=== PATIENT | male | born 1960 | race Caucasian/White ===

== ENCOUNTER 2022-04-06 07:49 | Day surgery (SDC) | payer OTHER ==
[~2022-04-06] VITALS: Ht 177.8 cm; Wt 84.0 kg
[~2022-04-06 07:49] MED LIST: Flomax0.4 MG PO; KETO10 PO; PROM25 PO; PROM25S; Percocet 5-3251 EACH PO
[2022-04-20 08:01] LABS: Performing Lab CELLNETIX; Test Name BIOPSY
== END 2022-04-06 10:07 | disposition home or self-care (01) ==
LOC: ORSCSDS 07:49
PROVIDERS: Student in an Organized Health Care Education/Training Program
PROC: 0DBM8ZX Excision of Descending Colon, Via Natural or Artificial Opening Endoscopic, Diagnostic (ICD-10-PCS; principal; 2022-04-06 09:00)
PROC: 0DBK8ZX Excision of Ascending Colon, Via Natural or Artificial Opening Endoscopic, Diagnostic (ICD-10-PCS; principal; 2022-04-06 09:00)
DX: Z12.11 Encounter for screening for malignant neoplasm of colon (principal); Z86.010 Personal history of colon polyps; K63.5 Polyp of colon; K57.30 Diverticulosis of large intestine without perforation or abscess without bleeding; K64.8 Other hemorrhoids; K62.89 Other specified diseases of anus and rectum; Z85.46 Personal history of malignant neoplasm of prostate
CPT/HCPCS: 88305; 88341; 88342; J2704; J7120